=== PATIENT | female | born 1950 | race Caucasian/White ===

== ENCOUNTER → 2017-01-18 | Outpatient (CLI) | payer BC ==
--- NOTE | 2017-01-19 09:16 | EKG ---
Date Performed: 01/18/2017 Time Performed: 12:24:46 PTAGE: 67 years EKG: Atrial fibrillation. Inferior infarct - age undetermined Ant/septal and lateral ST-T change s may be due to myocardial ischemia Low QRS voltages in precordial leads Abnormal ECG NO PREVIOUS TRACING DOCTOR: Lopez Kirkpatrick Interpretating Date/Time 01/19/2017 09:15:06
== END ==
LOC: HCAV 12:16
DX: I48.1 Persistent atrial fibrillation (principal)
CPT/HCPCS: 93005